=== PATIENT | male | born 1980 | race Asian ===

== ENCOUNTER 2018-02-06 19:37 | Inpatient (IN) | payer MEDICAID, OTHER ==
[~2018-02-06] VITALS: Ht 157.5 cm; Wt 69.1 kg
[2018-02-06 20:53] LABS: BASOPHILS % (AUTO) 0.7 % (0.0-2.0); EOSINOPHILS % (AUTO) 0.8 % (1.0-6.0); HEMATOCRIT 46.3 % (41-53); HEMOGLOBIN 16.2 g/dL (13.5-17.5); LYMPHOCYTES # (AUTO) 1.5 K/uL (1.0-4.8); LYMPHOCYTES % (AUTO) 18.9 % (22.0-44.0); MEAN CORPUSCULAR VOLUME 86 fL (80-100); MONOCYTES # (AUTO) 0.3 K/uL (0.1-1.0); MONOCYTES % (AUTO) 3.4 % (2.0-9.0); NEUTROPHILS % (AUTO) 76.2 % (40.0-70.0); PLATELET COUNT (AUTO) 350 K/uL (150-450); RED BLOOD CELL COUNT(AUTO) 5.38 MIL/uL (4.50-5.90)
[2018-02-06 21:03] LABS: ANION GAP 5 mmol/L (8-16); CALCIUM, TOTAL 8.7 mg/dL (8.8-10.5); CARBON DIOXIDE 26 mmol/L (22-29); CHLORIDE 104 mmol/L (98-107); CREATININE 1.12 mg/dL (0.60-1.30); GLOMERULAR FILTR. RATE CALC > 60 mL/min (>60); GLUCOSE,RANDOM 101 mg/dL (70-110); POTASSIUM 3.8 mmol/L (3.5-5.1); SODIUM SERUM 135 mmol/L (136-145); UREA NITROGEN, BLOOD 10 mg/dL (7-18)
[2018-02-06 21:09] LABS: ALANINE AMINOTRANSFERASE 17 U/L (12-78); ALBUMIN 3.9 g/dL (3.4-5.0); ALKALINE PHOSPHATASE 63 U/L (46-116); ASPARTATE AMINOTRANSFERASE 9 U/L (15-37); BILIRUBIN,TOTAL 0.6 mg/dL (0.1-1.0); TOTAL PROTEIN, SERUM 7.4 g/dL (6.4-8.2)
[2018-02-06] MEDS ORDERED: ZOLPIDEM TARTRATE 10 MG TABLET PO PRN (21:45)
[2018-02-06] MEDS ORDERED: LORazepam 2 MG TABLET PO PRN (21:45)
[2018-02-06] MEDS ORDERED: HALOPERIDOL 5 MG TABLET PO PRN (21:45)
[2018-02-06 22:51] LABS: HEMOGLOBIN A1C 4.7 % (4.5-6.2)
[2018-02-06] MEDS ORDERED: LORazepam 2 MG TABLET PO ONE (23:00)
[2018-02-06] MEDS ORDERED: IBUPROFEN 600 MG TABLET PO ONE (23:00)
[2018-02-06] MEDS ORDERED: ACETAMINOPHEN 500 MG TABLET PO ONE (23:00)
[2018-02-06 23:03] LABS: CHOL/HDL RATIO 2.7 (4.2-7.3); CHOLESTEROL 131 mg/dL (131-200); FREE T4 (FREE THYROXINE) 1.06 ng/dL (0.76-1.46); HDL CHOLESTEROL 48 mg/dL (40-60); LDL CHOL (CALC.) 60 mg/dL (0-130); THYROID STIMULATING HORMONE 0.57 uIU/mL (0.36-3.74); TRIGLYCERIDES 115 mg/dL (15-150)
[2018-02-06 23:58] LABS: AMPHET/METH SCREEN,URINE NEGATIVE (NEGATIVE); BARBITURATE SCREEN, URINE NEGATIVE (NEGATIVE); BENZODIAZEPINES SCREEN,URINE NEGATIVE (NEGATIVE); CANNABINOID SCREEN,URINE NEGATIVE (NEGATIVE); COCAINE SCREEN,URINE POSITIVE (NEGATIVE); METHADONE SCREEN, URINE NEGATIVE (NEGATIVE); OPIATE SCREEN,URINE POSITIVE (NEGATIVE); PHENCYCLIDINE SCREEN,URINE NEGATIVE (NEGATIVE)
[2018-02-07 02:50] VITALS: BP 133/85
[2018-02-07 10:27] VITALS: BP 133/92
[2018-02-07 16:44] VITALS: BP 130/83
[2018-02-08 09:18] VITALS: BP 142/82
== END 2018-02-08 16:10 | disposition home or self-care (01) | DRG 751 ==
LOC: EMS 19:39 → 3EI 02-07 01:00
DX: F29 Unspecified psychosis not due to a substance or known physiological condition (principal); F32.9 Major depressive disorder, single episode, unspecified; F15.10 Other stimulant abuse, uncomplicated; F10.10 Alcohol abuse, uncomplicated; F17.200 Nicotine dependence, unspecified, uncomplicated; F19.10 Other psychoactive substance abuse, uncomplicated; F41.9 Anxiety disorder, unspecified; F14.10 Cocaine abuse, uncomplicated; F11.10 Opioid abuse, uncomplicated; Z65.3 Problems related to other legal circumstances
CPT/HCPCS: 72040; 72070; 83036; 84439; 84443; 99285; G0480